=== PATIENT | male | born 1995 | race Caucasian/White ===

== ENCOUNTER 2017-07-21 22:27 | Inpatient (IN) ==
--- NOTE | 2017-07-21 22:59 | Emergency Department Note ---
Disposition Clinical Impression: Dehydration, Manic episode Bipolar disorder Qualifiers: Active/Remission status: remission status unspecified Qualified Code(s): F31.9 - Bipolar disorder, unspecified Alcohol withdrawal Qualifiers: Complication of substance-induced condition: uncomplicated Qualified Code(s): F10.230 - Alcohol dependence with withdrawal, uncomplicated Disposition: Admitted As Inpatient Condition: Fair Referrals: NONE,PCP [Primary Care Provider] - Forms: ED Satisfaction Letter Time of Disposition: 02:41 Psych HPI - General Chief Complaint: ED Psychiatric Symptoms Stated Complaint: SI Time Seen by Provider: 07/21/17 22:39 Source: patient Mode of arrival: ambulatory Limitations: no limitations Nursing Notes Reviewed: Yes Vital Signs Reviewed: Yes - History of Present Illness HPI Narrative: Nontoxic-appearing alert and oriented 22-year-old male presents for evaluation of "I think I meet her and acute dave or eye has some thyroid issues". The patient states for the past 2 weeks, he has been in a manic episode. He states that this is associated with an increased overall drive as well as racing thoughts. He complains of "my heart is racing all the time". He states that he has had "fevers" on and off that he describes as temperature fluctuations. He states that this along with his rapid heart rate lend him to believe that " my thyroid might be acting up", although he has no official diagnosis of thyroid disorder. He does not currently take any medications for his bipolar disorder. He states that in the past, he had been medicated however "it either did not work for made things worse". He does not see a psychiatrist, and states that he has not in the past 4 years. He admits to thoughts of self-harm in the past however denies any thoughts of inflicting self harm or harm to others currently. He denies any auditory or visual hallucinations. Pt complaint: anxiety, heart racing, other (racing thoughts) Onset (ago): week(s) (2 weeks) Duration: constant History of similar episodes: Yes Improves with: none Worsens with: none Associated Psychiatric Symptoms: racing thoughts Self harm or harm to others: denies thoughts of harming self/others - Related Data Home Medications Medication Instructions Recorded Confirmed Advil 12/16/16 Cough Syrup 12/16/16 Previous Rx's Medication Instructions Recorded Amoxicillin 875 mg PO BID #20 tablet 12/16/16 Allergies Allergy/AdvReac Type Severity Reaction Status Date / Time No Known Allergies Allergy Verified 07/21/17 22:39 All systems ED: reviewed and negative except as stated. Constitutional: Reports: as per HPI, other ("Temperature fluctuations"). Denies : fever, chills, weakness, weight change Eyes: Denies: eye pain, eye discharge, vision change ENT ED: Denies: ear pain, throat pain, dental pain, hearing loss, epistaxis, congestion, dysphagia Cardiovascular: Denies: chest pain, palpitations, dyspnea on exertion, edema, syncope Respiratory: Denies: cough, dyspnea, wheezes, hemoptysis, stridor Gastrointestinal: Denies: abdominal pain, nausea, vomiting, diarrhea, constipation, hematemesis, melena, hematochezia Genitourinary: Denies: urgency, dysuria, frequency, hematuria Musculoskeletal: Denies: back pain, neck pain, arthralgia, myalgia Integumentary: Denies: rash, abrasion, lesions Neurological: Denies: headache, weakness, numbness, paresthesias, confusion, abnormal gait, vertigo Psychiatric: Reports: as per HPI, other (Acing thoughts, "acute dave"). Denies : anxiety, depression, suicidal thoughts, homicidal thoughts, auditory hallucinations, visual hallucinations Endocrine: Denies: fatigue Hematological/Lymphatic: Denies: easy bleeding, easy bruising Allergic/Immunologic: Denies: facial swelling, urticaria Past Medical History - Past Medical History Attestation: Yes The following information was validated with the patient. Source: patient, nursing notes reviewed Medical history: Reports: no medical history Psychiatric history: Reports: bipolar - Social History Smoking Status: Current every day smoker Smokeless Tobacco Status: No Alcohol use: Reports: heavy, recent Drug use: Reports: none Physical Exam - General General appearance: alert, in no apparent distress - Head Head exam: atraumatic, normocephalic, normal inspection - Eye Eye exam: Present: normal appearance, PERRL, EOMI. Absent: nystagmus - ENT ENT exam: mucous membranes moist - Neck Neck exam: Present: normal inspection, full ROM, trachea midline - Chest Chest inspection: Present: normal inspection, symmetric chest wall rise - Respiratory Respiratory exam: Present: normal lung sounds bilaterally. Absent: respiratory distress, wheezes, stridor, accessory muscle use, prolonged expiratory phase - Cardiovascular Cardiovascular exam: Present: normal rhythm, tachycardia, normal heart sounds - Abdominal Exam Abdominal exam: Present: soft, Non-Tender, normal bowel sounds - Extremities Exam Extremities exam: Present: normal inspection, full ROM. Absent: tenderness, pedal edema - Neurological Exam Neurological exam: Present: alert, oriented X3 - Psychiatric Psychiatric exam: Present: normal affect, anxious - Skin Skin exam: Present: warm, dry, intact, normal color Course Course Narrative: I discussed this patient's case with Dr. Rosado, who agrees that the patient should be admitted to medicine for further evaluation and treatment of his alcohol withdrawal prior to any psychiatric consultation. The patient is in agreement with this plan. 0240: I discussed this patient's case with Dr. Ordoñez of the hospitalist service who has accepted the patient for admission. Vital Signs Temperature 98.2 F 07/21/17 22:33 Pulse Rate 138 07/21/17 22:33 Respiratory Rate 20 07/21/17 22:33 Blood Pressure 170/131 07/21/17 22:33 O2 Sat by Pulse Oximetry 96 07/21/17 22:33 Temperature 98.2 F 07/21/17 22:33 Pulse Rate 103 07/22/17 02:34 Respiratory Rate 16 07/22/17 02:34 Blood Pressure 134/90 07/22/17 02:34 O2 Sat by Pulse Oximetry 98 07/22/17 02:34 Oxygen Delivery Oxygen Delivery Room Air Psych - Lab Data Result diagrams: 07/21/17 23:27 07/21/17 23:27 Lab Results 07/21/17 07/21/17 07/21/17 Range/Units 23:06 23:06 23:27 WBC 5.1 (4.3-11.1) K/mcL RBC 5.47 (4.19-5.50) M/mcL Hgb 17.3 H (12.9-16.9) g/dL Hct 49.4 (37.5-50.1) % MCV 90.3 (83.0-100.0) fL MCH 31.6 (28.0-33.3) pg MCHC 35.0 (31.6-35.5) g/dL RDW 12.5 (11.5-14.5) % Plt Count 211 (140-400) K/mcL MPV 9.1 L (9.4-12.4) fL Immature Gran % 0.4 (0-4) % Seg Neutrophils % 50.3 % Lymphocytes % 39.4 % Monocytes % 7.5 % Eosinophils % 1.8 % Basophils % 0.6 % Neutrophils # 2.6 (1.6-8.9) K/mcL Lymphocytes # 2.0 (0.6-4.6) K/mcL Monocytes # 0.4 (0.0-1.3) K/mcL Eosinophils # 0.1 (0.0-0.6) K/mcL Basophils # 0.0 (0.0-0.2) K/mcL Immature Plt Fraction 3.6 (1.1-6.1) % Sodium (136-145) mEq/L Potassium (3.5-4.5) mEq/L Chloride (98-109) mEq/L Carbon Dioxide (19-29) mEq/L BUN (8-26) mg/dL Creatinine (0.72-1.25) mg/dL Est GFR ( Amer) (> 60) Est GFR (Non-Af Amer) (> 60) BUN/Creatinine Ratio (6-26) Glucose (70-99) mg/dL Calculated Osmolality (280-300) Calcium (8.6-10.8) mg/dL Phosphorus (2.3-4.7) mg/dL Magnesium (1.6-2.6) mg/dL Total Bilirubin (0.2-1.2) mg/dL Direct Bilirubin (0.0-0.5) mg/dL Indirect Bilirubin (0.0-1.2) mg/dL AST (5-34) Units/L ALT (0-55) Units/L Alkaline Phosphatase (38-126) Units/L Troponin I (0-0.03) ng/mL Serum Total Protein (6.0-8.3) g/dL Albumin (3.5-5.0) g/dL Globulin (2.4-3.5) g/dL Albumin/Globulin Ratio (1.1-2.2) TSH (0.350-4.840) mcIU/mL Urine Color Yellow (Yellow) Urine Clarity Clear (Clear) Urine pH 6.0 (5.0-8.0) pH Units Ur Specific [place] 1.013 (1.010-1.025) Urine Protein 100 H (Neg-Trace) mg/dL Urine Glucose (UA) Normal (Normal) mg/dL Urine Ketones Trace H (Negative) mg/dL Urine Blood Trace H (Negative) Urine Nitrite Negative (Negative) Urine Bilirubin Negative (Negative) Urine Urobilinogen Normal (Normal) mg/dL Ur Leukocyte Esterase Negative (Negative) Urine Microscopic RBC 0-3 (0-3) per hpf Urine Microscopic WBC 0-3 (0-3) per hpf Ur Squamous Epith Cells Moderate H (None-Few) per lpf Urine Bacteria None Seen (None-Few) per hpf Salicylates (15-30) mg/dL Urine Opiates Screen Negative (Xdpjwe=798) ng/mL Acetaminophen (10-30) mcg/mL Ur Barbiturates Screen Negative (Cfzlpo=717) ng/mL Ur Phencyclidine Scrn Negative (Cutoff=25) ng/mL Ur Amphetamines Screen Negative (Ocmjbc=3682) ng/mL U Benzodiazepines Scrn Negative (Tamjmm=874) ng/mL Urine Cocaine Screen Negative (Cutoff= 300) ng/mL U Marijuana (THC) Screen Negative (Cutoff = 50) ng/mL Ethyl Alcohol (0-10) mg/dL 07/21/17 07/21/17 07/21/17 Range/Units 23:27 23:27 23:27 WBC (4.3-11.1) K/mcL RBC (4.19-5.50) M/mcL Hgb (12.9-16.9) g/dL Hct (37.5-50.1) % MCV (83.0-100.0) fL MCH (28.0-33.3) pg MCHC (31.6-35.5) g/dL RDW (11.5-14.5) % Plt Count (140-400) K/mcL MPV (9.4-12.4) fL Immature Gran % (0-4) % Seg Neutrophils % % Lymphocytes % % Monocytes % % Eosinophils % % Basophils % % Neutrophils # (1.6-8.9) K/mcL Lymphocytes # (0.6-4.6) K/mcL Monocytes # (0.0-1.3) K/mcL Eosinophils # (0.0-0.6) K/mcL Basophils # (0.0-0.2) K/mcL Immature Plt Fraction (1.1-6.1) % Sodium 140 (136-145) mEq/L Potassium 3.7 (3.5-4.5) mEq/L Chloride 102 (98-109) mEq/L Carbon Dioxide 21 (19-29) mEq/L BUN 7 L (8-26) mg/dL Creatinine 1.03 (0.72-1.25) mg/dL Est GFR ( Amer) > 60 (> 60) Est GFR (Non-Af Amer) > 60 (> 60) BUN/Creatinine Ratio 7 (6-26) Glucose 115 H (70-99) mg/dL Calculated Osmolality 289 (280-300) Calcium 9.4 (8.6-10.8) mg/dL Phosphorus 2.9 (2.3-4.7) mg/dL Magnesium 2.7 H (1.6-2.6) mg/dL Total Bilirubin 0.8 (0.2-1.2) mg/dL Direct Bilirubin 0.4 (0.0-0.5) mg/dL Indirect Bilirubin 0.4 (0.0-1.2) mg/dL AST 106 H (5-34) Units/L ALT 78 H (0-55) Units/L Alkaline Phosphatase 75 (38-126) Units/L Troponin I 0.01 (0-0.03) ng/mL Serum Total Protein 8.7 H (6.0-8.3) g/dL Albumin 4.6 (3.5-5.0) g/dL Globulin 4.1 H (2.4-3.5) g/dL Albumin/Globulin Ratio 1.1 (1.1-2.2) TSH 1.777 (0.350-4.840) mcIU/mL Urine Color (Yellow) Urine Clarity (Clear) Urine pH (5.0-8.0) pH Units Ur Specific [place] (1.010-1.025) Urine Protein (Neg-Trace) mg/dL Urine Glucose (UA) (Normal) mg/dL Urine Ketones (Negative) mg/dL Urine Blood (Negative) Urine Nitrite (Negative) Urine Bilirubin (Negative) Urine Urobilinogen (Normal) mg/dL Ur Leukocyte Esterase (Negative) Urine Microscopic RBC (0-3) per hpf Urine Microscopic WBC (0-3) per hpf Ur Squamous Epith Cells (None-Few) per lpf Urine Bacteria (None-Few) per hpf Salicylates < 5.0 L (15-30) mg/dL Urine Opiates Screen (Ednghy=001) ng/mL Acetaminophen < 1.0 L (10-30) mcg/mL Ur Barbiturates Screen (Hfxxln=572) ng/mL Ur Phencyclidine Scrn (Cutoff=25) ng/mL Ur Amphetamines Screen (Hnuaqr=3696) ng/mL U Benzodiazepines Scrn (Grnvnx=559) ng/mL Urine Cocaine Screen (Cutoff= 300) ng/mL U Marijuana (THC) Screen (Cutoff = 50) ng/mL Ethyl Alcohol 313 H (0-10) mg/dL Psychiatric Medical Clearance - Medical Clearance Checklist Medical History: Alcohol abuse (Inactive) Depression (Inactive) Sinusitis (Inactive) Upper respiratory infection (Inactive) No Social History Section defined Current Vitals: Last Vital Signs Temp 98.2 F 07/21/17 22:33 Pulse 103 07/22/17 02:34 Resp 16 07/22/17 02:34 BP 134/90 07/22/17 02:34 Pulse Ox 98 07/22/17 02:34 Psychiatric Lab Panel: Drug Levels and Toxicity 07/21/17 07/21/17 23:06 23:27 Urine Opiates Screen Negative Acetaminophen < 1.0 L Ur Barbiturates Screen Negative Ur Phencyclidine Scrn Negative Ur Amphetamines Screen Negative U Benzodiazepines Scrn Negative Urine Cocaine Screen Negative U Marijuana (THC) Screen Negative Ethyl Alcohol 313 H Abnormal Labs: Abnormal lab results Hgb 17.3 g/dL (12.9-16.9) H 07/21/17 23:27 MPV 9.1 fL (9.4-12.4) L 07/21/17 23:27 BUN 7 mg/dL (8-26) L 07/21/17 23:27 Glucose 115 mg/dL (70-99) H 07/21/17 23:27 Magnesium 2.7 mg/dL (1.6-2.6) H 07/21/17 23:27 AST 106 Units/L (5-34) H 07/21/17 23:27 ALT 78 Units/L (0-55) H 07/21/17 23:27 Serum Total Protein 8.7 g/dL (6.0-8.3) H 07/21/17 23:27 Globulin 4.1 g/dL (2.4-3.5) H 07/21/17 23:27 Urine Protein 100 mg/dL (Neg-Trace) H 07/21/17 23:06 Urine Ketones Trace mg/dL (Negative) H 07/21/17 23:06 Urine Blood Trace (Negative) H 07/21/17 23:06 Ur Squamous Epith Cells Moderate per lpf (None-Few) H 07/21/17 23:06 Salicylates < 5.0 mg/dL (15-30) L 07/21/17 23:27 Acetaminophen < 1.0 mcg/mL (10-30) L 07/21/17 23:27 Ethyl Alcohol 313 mg/dL (0-10) H 07/21/17 23:27 Statement of Medical Clearance: I have evaluated the patient, reviewed diagnostic information, and certify that the patient's medical condition is sufficiently stable that transfer to the psychiatric unit does not pose a significant risk of deterioration. Attestation Statement - Attestation Attestation: For this encounter, I have reviewed the GRANULIZING MACHINE OPERATOR or PA documentation, treatment plan, and medical decision making; and I have had face to face time with this patient. 22 year old male who is a chronic alcoholic and here today for SI. Patient has a ETOH of 313 and likely will have alcohol detox issues if he is needed to have a ETOH <80. WE will start banana bag and mVI and admti to medicine for alcoholic intoxcation/withdrawl and pysch medical clearance
[2017-07-21 23:15] LABS: Bilirubin,Urine Negative (Negative); Blood,Urine Trace (Negative); Clarity,Urine Clear (Clear); Color,Urine Yellow (Yellow); Glucose,Urine (UA) Normal (Normal); Ketones,Urine Trace mg/dL (Negative); Leukocyte Esterase,Urine Negative (Negative); Nitrite,Urine Negative (Negative); Protein,Urine 100 mg/dL (Neg-Trace); Specific Gravity,Urine 1.013 (1.010-1.025); Urobilinogen,Urine Normal (Normal)
[2017-07-21 23:17] LABS: Amphetamine Screen,Urine Negative ng/mL (Cutoff=1000); Barbiturate Screen,Urine Negative ng/mL (Cutoff=200); Benzodiazepines Screen,Urine Negative ng/mL (Cutoff=200); Cannabinoid Screen,Urine Negative ng/mL (Cutoff = 50); Cocaine Screen,Urine Negative ng/mL (Cutoff= 300); Opiate Screen,Urine Negative ng/mL (Cutoff=300); Phencyclidine Screen,Urine Negative ng/mL (Cutoff=25)
[2017-07-21 23:18] LABS: Bacteria,Urine None Seen per hpf (None-Few); RBC,Urine 0-3 per hpf (0-3); Squamous Epithelial Cell,Urine Moderate per lpf (None-Few); WBC,Urine 0-3 per hpf (0-3)
[2017-07-21 23:34] LABS: Basophils % 0.6 %; Eosinophils # 0.1 K/mcL (0.0-0.6); Eosinophils % 1.8 %; Hematocrit 49.4 % (37.5-50.1); Hemoglobin 17.3 g/dL (12.9-16.9); Immature Granulocytes % 0.4 % (0-4); Immature Platelets 3.6 % (1.1-6.1); Lymphocytes % 39.4 %; Mean Corpuscular Hemoglobin 31.6 pg (28.0-33.3); Mean Corpuscular Volume 90.3 fL (83.0-100.0); Mean Platelet Volume 9.1 fL (9.4-12.4); Monocytes # 0.4 K/mcL (0.0-1.3); Monocytes % 7.5 %; Neutrophils # 2.6 K/mcL (1.6-8.9); Platelet Count 211 K/mcL (140-400); Red Blood Count 5.47 M/mcL (4.19-5.50); Red Cell Distribution Width 12.5 % (11.5-14.5); Segmented Neutrophils % 50.3 %
[2017-07-21 23:46] LABS: BUN/Creatinine Ratio 7 (6-26); Blood Urea Nitrogen 7 mg/dL (8-26); Calcium 9.4 mg/dL (8.6-10.8); Carbon Dioxide 21 mEq/L (19-29); Chloride 102 mEq/L (98-109); Glucose 115 mg/dL (70-99); Osmolality,Calculated 289 (280-300); Potassium 3.7 mEq/L (3.5-4.5); Sodium 140 mEq/L (136-145); eGFR For African Americans > 60 (> 60); eGFR For Non-African Americans > 60 (> 60)
[2017-07-21 23:48] LABS: Albumin 4.6 g/dL (3.5-5.0); Albumin/Globulin Ratio 1.1 (1.1-2.2); Bilirubin,Direct 0.4 mg/dL (0.0-0.5); Bilirubin,Indirect 0.4 mg/dL (0.0-1.2); Bilirubin,Total 0.8 mg/dL (0.2-1.2); Globulin 4.1 g/dL (2.4-3.5); Magnesium 2.7 mg/dL (1.6-2.6); Phosphorous 2.9 mg/dL (2.3-4.7); Total Protein 8.7 g/dL (6.0-8.3)
[2017-07-22 00:43] LABS: Acetaminophen < 1.0 mcg/mL (10-30)
[2017-07-22 00:44] LABS: Ethanol 313 mg/dL (0-10); Salicylate < 5.0 mg/dL (15-30)
[2017-07-22 01:00] LABS: Thyroid Stimulating Hormone 1.777 mcIU/mL (0.350-4.840)
[2017-07-22] MEDS ORDERED: *HR* LORazepam 2 MG/ML VIAL IVP ONE (01:06)
[2017-07-22] MEDS: 0.9 % Sodium Chloride 1,000 ML IVC SCH ×8 (01:55→19:38)
[2017-07-22] MEDS ORDERED: Ondansetron 4 MG/2 ML VIAL IVP PRN (03:45)
[2017-07-22] MEDS ORDERED: Naloxone 0.4 MG/ML INJ IVP PRN (03:45)
[2017-07-22] MEDS ORDERED: *HR* LORazepam 2 MG/ML VIAL IVP PRN ×3 (03:46)
[2017-07-22 05:03] LABS: Basophils % 0.4 %; Eosinophils % 0.7 %; Hematocrit 41.7 % (37.5-50.1); Immature Granulocytes % 0.2 % (0-4); Lymphocytes # 1.4 K/mcL (0.6-4.6); Lymphocytes % 29.7 %; Mean Corpuscular Hemoglobin 32.4 pg (28.0-33.3); Mean Corpuscular Volume 92.5 fL (83.0-100.0); Mean Platelet Volume 9.2 fL (9.4-12.4); Monocytes # 0.3 K/mcL (0.0-1.3); Monocytes % 6.7 %; Neutrophils # 2.9 K/mcL (1.6-8.9); Platelet Count 138 K/mcL (140-400); Red Blood Count 4.51 M/mcL (4.19-5.50); Red Cell Distribution Width 12.6 % (11.5-14.5); Segmented Neutrophils % 62.3 %
[2017-07-22 05:05] LABS: Hemoglobin 14.6 g/dL (12.9-16.9)
[2017-07-22 05:27] LABS: BUN/Creatinine Ratio 9 (6-26); Blood Urea Nitrogen 7 mg/dL (8-26); Carbon Dioxide 20 mEq/L (19-29); Chloride 105 mEq/L (98-109); Glucose 86 mg/dL (70-99); Magnesium 2.1 mg/dL (1.6-2.6); Osmolality,Calculated 287 (280-300); Phosphorous 2.8 mg/dL (2.3-4.7); Potassium 3.5 mEq/L (3.5-4.5); Sodium 140 mEq/L (136-145); eGFR For African Americans > 60 (> 60); eGFR For Non-African Americans > 60 (> 60)
[2017-07-22] MEDS ORDERED: Thiamine (B-1) 100 MG, Folic Acid 1 MG, MVI, adult with vitamin K 10 ML in 0.9 % Sodi... IVPB SCH ×2 (06:00→18:00)
--- NOTE | 2017-07-22 06:13 | Internal Med History&Physical ---
Date of Encounter: 07/22/17 Time of Encounter: 05:10 Assessment and Plan (1) Alcohol intoxication Current visit: Yes Status: Acute As per ER physician, patient can not be transferred to psych for ETOH levels above 80 will closely monitor for alcohol withdrawal Supplement Banana bag with MVI, Folate, and Thiamine CIWA protocol Ativan as needed tele monitoring will continue to closely monitor Qualifiers: Complication of substance-induced condition: with unspecified complication Qualified Code(s): F10.929 - Alcohol use, unspecified with intoxication, unspecified (2) Suicidal ideation Current visit: Yes Status: Acute Patient reports of hearing voices without any clear messages He reports of having suicidal thoughts without any clear plan Will continue 1:1 observation psychiatry evaluation requested by ER Physician (3) Bipolar disorder Current visit: Yes Status: Acute Reported history by patient Currently calm will await psych follow up patient reports of not taking any medications at home Qualifiers: Active/Remission status: currently active Current bipolar episode type: mixed Current episode severity: unspecified Qualified Code(s): F31.60 - Bipolar disorder, current episode mixed, unspecified (4) DVT prophylaxis Current visit: Yes Status: Acute Heparin SQ Internal Medicine - H&P: HPI Chief complaint: suicidal ideation/bipolar disorder Admitted From: Home Plans for Post Hospital Care: Home History of present illness: Mr. Elena is a 22 year old male with history of bipolar disorder, alcohol abuse , suicide attempts who presents to the ER for management of his acute manic episode secondary to his bipolar disorder. Patient states he has been hearing voices for the last few weeks and has been using alcohol to calm himself down. He says he has not seen a psychiatrist in over three years and needs to see one. He reports of having past suicide attempt and current has thoughts of hurting himself with no clear plan. He states he couldn't handle the voices anymore which prompted his visit to the ER. Upon arrival to the ER, he was intoxicated due to which he could not be admitted to psych inpatient. He was asked for medicine clearance for transfer to psych. Psych consultation has been requested by the ER physician. At this time, patient is resting comfortably in bed. He states he needs to get help and wants to get help. He states he had quit drinking until this recent episode. Reports of smoking marijuana two weeks ago, however denies any other drug abuse. He denies any chest pain, sob, abd pain, n/v, fever, or chills. Past Med Surg Social Fam HX - Past Medical History Medical history: no medical history Psychiatric history: anxiety, bipolar, depression, prior suicide attempt - Past Surgical History Surgical History: no surgical history - Social History Smoking Status: Current every day smoker Smokeless Tobacco Status: No Alcohol use: heavy, recent Drug use: marijuana - Family History Mother Name: Amee Blount Age: 67 Living Status: Still Living Hx Family Cardiac Disorders: No Hx Family Respiratory Disorders: Yes (Smoker) Hx Family Cancer: No Hx Family GI Disorders: Yes (Positive colonoscopy) Hx Family Genitourinary Disorders: No Hx Family Endocrine Disorder: Yes (gestational diabetes) Hx Family Musculoskeletal Disorders: Yes (Spinal surgery, Degenerative disk diease) Hx Family Neuromuscular Disorders: No Hx Family Neurologic Disorders: No Hx Family HEENT Disorders: No Hx Family Autoimmune Disorders: No Hx Family Reproductive Disorders: No Hx Family Psychosocial Disorders: Yes ("explosive temper") Hx Family Medical Disorders: No Internal Medicine - H&P: Meds Advil 12/16/16 [History] Amoxicillin 875 mg PO BID #20 tablet 12/16/16 [Rx] Cough Syrup 12/16/16 [History] 3 Allergy/AdvReac Type Severity Reaction Status Date / Time No Known Allergies Allergy Verified 07/21/17 22:39 All Systems PM: A 10-system review of systems was performed and is negative for pertinent findings except as documented above in the HPI. - Constitutional Constitutional: as per HPI - Constitutional Vitals: Temp Pulse Resp BP Pulse Ox 98.1 F 103 18 134/88 98 07/22/17 03:33 07/22/17 02:34 07/22/17 03:33 07/22/17 03:33 07/22/17 02:34 General appearance: Present: cooperative, A&O X 3, no acute distress, answers questions appropriately - Head Head exam: Present: atraumatic, normocephalic - Eye Eye exam: Present: conjuntiva pink, sclera anicteric - Respiratory Respiratory exam: Present: CTAB. Absent: accessory muscle use, rales, rhonchi, wheezes - Cardiovascular Cardiovascular exam: Present: RRR, +S1, +S2. Absent: diastolic murmur, gallop, rubs, systolic murmur - GI/Abdominal GI/Abdominal exam: Present: normal bowel sounds, soft, no peritoneal signs. Absent: distended, tenderness - Extremities Exam Extremities exam: Present: warm, radial pulses palpable and symmetrical. Absent : calf tenderness, cyanotic, pedal edema - Neurological Exam Neurological exam: Present: alert, oriented X3 - Psychiatric Psychiatric exam: Present: depressed Internal Med - H&P Results - Labs CBC & Chem 7: 07/22/17 04:38 07/22/17 04:38 Labs: Short CBC 07/22/17 Range/Units 04:38 WBC 4.6 (4.3-11.1) K/mcL Hgb 14.6 D (12.9-16.9) g/dL Hct 41.7 (37.5-50.1) % Plt Count 138 L (140-400) K/mcL Neutrophils # 2.9 (1.6-8.9) K/mcL BMP 07/22/17 04:38 Sodium 140 Potassium 3.5 Chloride 105 Carbon Dioxide 20 BUN 7 L Creatinine 0.82 Glucose 86 Calcium 8.0 L
[2017-07-22] MEDS: *HR* Heparin 5,000 UNIT/ML VIAL SQ SCH ×2 (07:49→18:39)
--- NOTE | 2017-07-22 12:17 | Electrocardiograph Report ---
[place] [id number] Test Date: 2017-07-21 Pat Name: Devyn Elena Department: 103 Room: 3B Gender: M Nurse Tech: JOYCE : [id number] Requested By: Sami Gottlieb Order Number: [id number] Reading MD: Sydni Aldana Measurements Intervals [place] Rate: 118 P: 38 FL: 158 QRS: -34 QRSD: 97 T: 20 QT: 305 QTc: 375 Interpretive Statements SINUS TACHYCARDIA LEFT AXIS DEVIATION INCOMPLETE RIGHT BUNDLE BRANCH BLOCK Electronically Signed On 07-22-2017 12:16:17 EDT by Sydni Aldana
--- NOTE | 2017-07-22 15:42 | Consult Note ---
Date of Encounter: 07/22/17 Time of Encounter: 15:10 Assessment & Recommendation (1) Bipolar disorder Current visit: Yes Status: Acute Assessment & Recommendation: After medical stabilization patient would be transferred to psychiatric unit for further evaluation and treatment of bipolar disorder. Treatment plan was shared was attending physician and nursing staff. Qualifiers: Active/Remission status: currently active Current bipolar episode type: mixed Current episode severity: unspecified Qualified Code(s): F31.60 - Bipolar disorder, current episode mixed, unspecified (2) Alcohol intoxication Current visit: Yes Status: Acute Qualifiers: Complication of substance-induced condition: with unspecified complication Qualified Code(s): F10.929 - Alcohol use, unspecified with intoxication, unspecified History of Present Illness Patient: new to practice Requesting Physician: Bertha Rasmussen MD Reason for consult: Bipolar disorder, manic episode, intoxication History of present illness: Mr. Elena is a 22 year old male admitted to the medical floor for evaluation treatment of alcohol intoxication was alcohol level of 313, suicidal ideation and manic episodes and history of bipolar disorder. Patient reports he has been diagnosed and treated for bipolar disorder was medication in the past and has been without treatment for the last 4 years. He was treated in the past with lithium and Abilify and he reported having side effects from both medication in addition she drinks alcohol excessively when he is manic and he is unable to sleep and prior to admission he was drinking excessive amount of alcohol and unable to control himself. His girlfriend encouraged him to come the hospital for evaluation. Patient is currently on CIWA scale and monitored for sore symptoms and being medically stabilized. He reports using marijuana and alcohol caffeine and nicotine excessive amounts. 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 CC: Bertha Rasmussen MD Past Med Surg Social Fam HX - Past Medical History Medical history: no medical history - Past Psychiatric History Psychiatric history: Reports: bipolar. Denies: previous psychiatric hospitalization - Past Surgical History Surgical History: no surgical history - Social History Smoking Status: Current every day smoker Smokeless Tobacco Status: No Alcohol use: heavy, recent Drug use: marijuana - Family History Mother Name: Amee Blount Age: 67 Living Status: Still Living Hx Family Cardiac Disorders: No Hx Family Respiratory Disorders: Yes (Smoker) Hx Family Cancer: No Hx Family GI Disorders: Yes (Positive colonoscopy) Hx Family Genitourinary Disorders: No Hx Family Endocrine Disorder: Yes (gestational diabetes) Hx Family Musculoskeletal Disorders: Yes (Spinal surgery, Degenerative disk diease) Hx Family Neuromuscular Disorders: No Hx Family Neurologic Disorders: No Hx Family HEENT Disorders: No Hx Family Autoimmune Disorders: No Hx Family Reproductive Disorders: No Hx Family Psychosocial Disorders: Yes ("explosive temper") Hx Family Medical Disorders: No Medications & Allergies No Known Home Drugs 07/22/17 [History] 3 Allergy/AdvReac Type Severity Reaction Status Date / Time No Known Allergies Allergy Verified 07/22/17 14:24 Review of Systems Psychiatric: Reports: abnormal sleep pattern, suicidal ideation Mental Status Exam Patient orientation: Yes Person, Yes Time, Yes Place Level of alertness: Alert, Sedated Patient appearance: Appropriate, Unkempt Behavior: calm, cooperative, anxious Psychomotor activity: Slowed Eye contact: Minimal Contact Mood description: Anxious, Labile Affect description: congruent with mood, labile Speech pattern: Normal rate, Normal rhythm, Normal tone Speech volume: Normal Thought process: Linear, Goal Oriented Thought content: Yes Suicidal ideation, No Homicidal ideation, No Overt delusions Perceptual disturbances: Yes Auditory hallucinations, Yes Visual hallucinations Attention span: Capable of Focused Attention Memory description: Grossly Intact Patient reliability: Questionable Historian Intelligence estimate: Average Judgment: Limited Insight: Partial Results - Vital Signs Vital signs: Temp Pulse Resp BP Pulse Ox 97.7 F 90 18 131/89 97 07/22/17 10:57 07/22/17 10:57 07/22/17 10:57 07/22/17 10:57 07/22/17 10:57 - Labs Labs: Laboratory Last Values WBC 4.6 K/mcL (4.3-11.1) 07/22/17 04:38 RBC 4.51 M/mcL (4.19-5.50) 07/22/17 04:38 Hgb 14.6 g/dL (12.9-16.9) D 07/22/17 04:38 Hct 41.7 % (37.5-50.1) 07/22/17 04:38 MCV 92.5 fL (83.0-100.0) 07/22/17 04:38 MCH 32.4 pg (28.0-33.3) 07/22/17 04:38 MCHC 35.0 g/dL (31.6-35.5) 07/22/17 04:38 RDW 12.6 % (11.5-14.5) 07/22/17 04:38 Plt Count 138 K/mcL (140-400) L 07/22/17 04:38 MPV 9.2 fL (9.4-12.4) L 07/22/17 04:38 Immature Gran % 0.2 % (0-4) 07/22/17 04:38 Seg Neutrophils % 62.3 % 07/22/17 04:38 Lymphocytes % 29.7 % 07/22/17 04:38 Monocytes % 6.7 % 07/22/17 04:38 Eosinophils % 0.7 % 07/22/17 04:38 Basophils % 0.4 % 07/22/17 04:38 Neutrophils # 2.9 K/mcL (1.6-8.9) 07/22/17 04:38 Lymphocytes # 1.4 K/mcL (0.6-4.6) 07/22/17 04:38 Monocytes # 0.3 K/mcL (0.0-1.3) 07/22/17 04:38 Eosinophils # 0.0 K/mcL (0.0-0.6) 07/22/17 04:38 Basophils # 0.0 K/mcL (0.0-0.2) 07/22/17 04:38 Immature Plt Fraction 3.6 % (1.1-6.1) 07/21/17 23:27 Sodium 140 mEq/L (136-145) 07/22/17 04:38 Potassium 3.5 mEq/L (3.5-4.5) 07/22/17 04:38 Chloride 105 mEq/L (98-109) 07/22/17 04:38 Carbon Dioxide 20 mEq/L (19-29) 07/22/17 04:38 BUN 7 mg/dL (8-26) L 07/22/17 04:38 Creatinine 0.82 mg/dL (0.72-1.25) 07/22/17 04:38 Est GFR ( Amer) > 60 (> 60) 07/22/17 04:38 Est GFR (Non-Af Amer) > 60 (> 60) 07/22/17 04:38 BUN/Creatinine Ratio 9 (6-26) 07/22/17 04:38 Glucose 86 mg/dL (70-99) 07/22/17 04:38 Calculated Osmolality 287 (280-300) 07/22/17 04:38 Calcium 8.0 mg/dL (8.6-10.8) L 07/22/17 04:38 Phosphorus 2.8 mg/dL (2.3-4.7) 07/22/17 04:38 Magnesium 2.1 mg/dL (1.6-2.6) 07/22/17 04:38 Total Bilirubin 0.8 mg/dL (0.2-1.2) 07/21/17 23: Direct Bilirubin 0.4 mg/dL (0.0-0.5) 07/21/17 23: Indirect Bilirubin 0.4 mg/dL (0.0-1.2) 07/21/17 23:27 AST 106 Units/L (5-34) H 07/21/17 23:27 ALT 78 Units/L (0-55) H 07/21/17 23:27 Alkaline Phosphatase 75 Units/L (38-126) 07/21/17 23:27 Troponin I 0.01 ng/mL (0-0.03) 07/21/17 23:27 Serum Total Protein 8.7 g/dL (6.0-8.3) H 07/21/17 23: Albumin 4.6 g/dL (3.5-5.0) 07/21/17 23: Globulin 4.1 g/dL (2.4-3.5) H 07/21/17 23:27 Albumin/Globulin Ratio 1.1 (1.1-2.2) 07/21/17 23:27 TSH 1.777 mcIU/mL (0.350-4.840) 07/21/17 23:27 Urine Color Yellow (Yellow) 07/21/17 23:06 Urine Clarity Clear (Clear) 07/21/17 23: Urine pH 6.0 pH Units (5.0-8.0) 07/21/17 23: Ur Specific [place] 1.013 (1.010-1.025) 07/21/17 23:06 Urine Protein 100 mg/dL (Neg-Trace) H 07/21/17 23:06 Urine Glucose (UA) Normal mg/dL (Normal) 07/21/17 23:06 Urine Ketones Trace mg/dL (Negative) H 07/21/17 23:06 Urine Blood Trace (Negative) H 07/21/17 23:06 Urine Nitrite Negative (Negative) 07/21/17 23:06 Urine Bilirubin Negative (Negative) 07/21/17 23:06 Urine Urobilinogen Normal mg/dL (Normal) 07/21/17 23:06 Ur Leukocyte Esterase Negative (Negative) 07/21/17 23:06 Urine Microscopic RBC 0-3 per hpf (0-3) 07/21/17 23:06 Urine Microscopic WBC 0-3 per hpf (0-3) 07/21/17 23:06 Ur Squamous Epith Cells Moderate per lpf (None-Few) H 07/21/17 23:06 Urine Bacteria None Seen per hpf (None-Few) 07/21/17 23:06 Salicylates < 5.0 mg/dL (15-30) L 07/21/17 23:27 Urine Opiates Screen Negative ng/mL (Ydkpmt=571) 07/21/17 23:06 Acetaminophen < 1.0 mcg/mL (10-30) L 07/21/17 23:27 Ur Barbiturates Screen Negative ng/mL (Kdppop=279) 07/21/17 23:06 Ur Phencyclidine Scrn Negative ng/mL (Cutoff=25) 07/21/17 23:06 Ur Amphetamines Screen Negative ng/mL (Fkdfyr=5959) 07/21/17 23:06 U Benzodiazepines Scrn Negative ng/mL (Iyeetn=942) 07/21/17 23:06 Urine Cocaine Screen Negative ng/mL (Cutoff= 300) 07/21/17 23:06 U Marijuana (THC) Screen Negative ng/mL (Cutoff = 50) 07/21/17 23:06 Ethyl Alcohol 313 mg/dL (0-10) H 07/21/17 23:27 Consult Discharge Plan - Plan Referrals: NONE,PCP [Primary Care Provider] -
[2017-07-22] MEDS ORDERED: Ibuprofen 600 MG TABLET PO ONE (21:09)
--- NOTE | 2017-07-22 23:11 | Event Note ---
Date of Encounter: 07/22/17 Time of Encounter: 14:15 22 year old male with h/o- bipolar disorder, presents with c/o- ongoing manic phase with poor sleep and appetite, now feeling "out of battery" and exhausted. Patient noted to have some alcohol intoxication at admission with serum alcohol level of 313. Physical exam nonfocal, VSS. Case d/w Psychiatry- recommend to recheck alcohol level, and continue CIWA; plan to transfer to psych floor when stable; currently not requiring IV Ativan. Patient denies ever having suicidal ideation since presenting to ER yesterday; will discontinue 1:1 watch for now.
[2017-07-23] MEDS: 0.9 % Sodium Chloride 1,000 ML IVC SCH ×4 (00:10→21:20)
[2017-07-23 06:14] LABS: Basophils % 0.3 %; Eosinophils # 0.1 K/mcL (0.0-0.6); Eosinophils % 1.5 %; Hematocrit 46.2 % (37.5-50.1); Immature Granulocytes % 0.3 % (0-4); Lymphocytes # 1.6 K/mcL (0.6-4.6); Lymphocytes % 26.3 %; Mean Corpuscular HGB Conc 35.3 g/dL (31.6-35.5); Mean Corpuscular Hemoglobin 32.5 pg (28.0-33.3); Mean Corpuscular Volume 92.2 fL (83.0-100.0); Mean Platelet Volume 9.7 fL (9.4-12.4); Monocytes # 0.5 K/mcL (0.0-1.3); Monocytes % 8.7 %; Neutrophils # 3.7 K/mcL (1.6-8.9); Platelet Count 125 K/mcL (140-400); Red Blood Count 5.01 M/mcL (4.19-5.50); Red Cell Distribution Width 12.4 % (11.5-14.5); Segmented Neutrophils % 62.9 %
[2017-07-23 06:17] LABS: BUN/Creatinine Ratio 13 (6-26); Blood Urea Nitrogen 10 mg/dL (8-26); Carbon Dioxide 21 mEq/L (19-29); Chloride 103 mEq/L (98-109); Glucose 71 mg/dL (70-99); Hemoglobin 16.3 g/dL (12.9-16.9); Magnesium 2.5 mg/dL (1.6-2.6); Osmolality,Calculated 284 (280-300); Phosphorous 2.9 mg/dL (2.3-4.7); Potassium 3.6 mEq/L (3.5-4.5); Sodium 138 mEq/L (136-145); eGFR For African Americans > 60 (> 60); eGFR For Non-African Americans > 60 (> 60)
[2017-07-23] MEDS: *HR* Heparin 5,000 UNIT/ML VIAL SQ SCH ×2 (06:17→17:58)
[2017-07-23 06:18] LABS: Calcium 9.5 mg/dL (8.6-10.8)
[2017-07-23] MEDS: Vitamin B Complex/Vit C/Vit E 1 EACH TABLET PO SCH (08:25)
[2017-07-23] MEDS: Folic Acid 1 MG TABLET PO SCH (08:25)
[2017-07-23] MEDS: Thiamine (B-1) 100 MG TABLET PO SCH (08:25)
--- NOTE | 2017-07-23 14:38 | Discharge Summary ---
Date of Encounter: 07/23/17 Time of Encounter: 13:35 - Discharge Diagnosis (1) Alcohol intoxication Priority: Primary Status: Acute Comments: ETOH level is back to normal, pt is ready for transfer to . Qualifiers: Complication of substance-induced condition: with unspecified complication Qualified Code(s): F10.929 - Alcohol use, unspecified with intoxication, unspecified (2) Suicidal ideation Priority: Secondary Status: Acute Comments: Pt states that he has never been suicidal. He states that at some point since arriving in the ED, someone added it, despite him saying that he is not suicidal. States that he has been suicidal in the past, however, has not been for the last month. Pt has not had a sitter today and is ready for transfer to . (3) Bipolar disorder Priority: Secondary Status: Chronic Comments: Chronic. Pt states that he does not take medication. Qualifiers: Active/Remission status: currently active Current bipolar episode type: mixed Current episode severity: unspecified Qualified Code(s): F31.60 - Bipolar disorder, current episode mixed, unspecified (4) DVT prophylaxis Priority: Secondary Status: Acute Comments: Heparin SQ. - Discharge Medications Home Medications: Folic Acid 1 mg PO DAILY tablet 07/23/17 [Rx] Thiamine (B-1) [Vitamin B-1] 100 mg PO DAILY tablet 07/23/17 [Rx] Vitamin B Complex/Vit C/Vit E [Stresstab] 1 each PO DAILY tablet 07/23/17 [Rx] Allergies/Adverse Reactions: 3 Allergy/AdvReac Type Severity Reaction Status Date / Time No Known Allergies Allergy Verified 07/22/17 14:24 Date of admission: 07/22/17 14:11 Primary care physician: PCP NONE Discharging clinician: Rosalind Vieira Anticipated date of discharge: 07/23/17 - Patient Status Disposition: Transfer Psychiatric Hosp Condition: Good Functional capacity at discharge: independent ambulation Overall status at discharge: patient is back to baseline - Discharge Instructions Follow Up With: NONE,PCP [Primary Care Provider] - Additional Instructions: Pt is being discharged to . - Diet and Activity Activity: increase activity as tolerated Diet: advance to your usual diet Hospital course: Mr. Elena is a 22 year old male with history of bipolar disorder, alcohol abuse, suicide attempts who presents to the ER for management of his acute manic episode secondary to his bipolar disorder. Patient states he has been hearing voices for the last few weeks and has been using alcohol to calm himself down. He says he has not seen a psychiatrist in over three years and needs to see one. He states that he is not consistent with taking medications. He reports of having past suicide attempt and current has thoughts of hurting himself with no clear plan to the ER staff, however, to me he states that he was never suicidal and that someone inserted it into his history. He states he couldn't handle the voices anymore which prompted his visit to the ER. He currently denies hearing voices to me. Upon arrival to the ER, he was intoxicated due to which he could not be admitted to psych inpatient. He was admitted for medical management until he could be admitted to for mental health admission. Alcohol level has returned to WNL and he is ready for transfer. He denies abd pain, n/v/d, headache, dizziness, lightheadedness, vision changes , chest pain, or SOB. His vital signs have been stable and his labs are WNL. Pt is ready for discharge and transfer to . - Time Spent with Patient Total time spent providing and/or coordinating discharge services: Less than 30 minutes - Constitutional Vitals: Temp Pulse Resp BP Pulse Ox 97.9 F 78 16 136/89 97 07/23/17 10:54 07/23/17 10:54 07/23/17 10:54 07/23/17 10:54 07/23/17 10:54 General appearance: Present: cooperative, A&O X 3, pleasant, no acute distress, answers questions appropriately - Head Head exam: Present: atraumatic, normal inspection, normocephalic - Eye Eye exam: Present: EOMI, normal appearance, conjuntiva pink, sclera anicteric - Neck Neck exam general surgery: Present: supple, trachea midline. Absent: lymphadenopathy, tenderness - Respiratory Respiratory exam: Present: CTAB. Absent: accessory muscle use, rales, rhonchi, wheezes - Cardiovascular Cardiovascular exam: Present: RRR, +S1, +S2. Absent: diastolic murmur, gallop, rubs, systolic murmur - GI/Abdominal GI/Abdominal exam: Present: normal bowel sounds, soft, no peritoneal signs. Absent: distended, firm, hepatomegaly, tenderness - Extremities Exam Extremities exam: Present: normal capillary refill, normal inspection, warm, radial pulses palpable and symmetrical. Absent: calf tenderness, cyanotic, pedal edema, tenderness - Neurological Exam Neurological exam: Present: alert, oriented X3, no focal deficits. Absent: facial droop, speech deficit - Skin Skin exam: Present: dry, intact, normal color, warm. Absent: rash
--- NOTE | 2017-07-23 19:45 | Event Note ---
Date of Encounter: 07/23/17 Time of Encounter: 19:39 I interviewed the patient at the bedside. He is calm and cooperative. He denies suicidal ideation or thoughts at present. He has a history of bipolar disorder and suicidal attempts in the past. He reports a recent history of heightened mood, energy level, diminished need for sleep. He was evaluated by psychiatry and deemed stable for voluntary inpatient psychiatric admission and management bipolar disorder with manic phase. At this point the patient is appropriate, demonstrating sound judgment, denies suicidal ideation, denies homicidal ideation. I consider him not to be a threat to self or others and appears to be reasonable and cooperative and quite able to take care of himself in the outpatient setting. He agreed to remain in the hospital on the medical floor awaiting psychiatry reevaluation. He is not at elopement risk. We will continue medical care.
[2017-07-24] MEDS: *HR* Heparin 5,000 UNIT/ML VIAL SQ SCH (05:54)
[2017-07-24 07:30] VITALS: BP 135/87
[2017-07-24] MEDS: Vitamin B Complex/Vit C/Vit E 1 EACH TABLET PO SCH (09:02)
[2017-07-24] MEDS: Thiamine (B-1) 100 MG TABLET PO SCH (09:02)
[2017-07-24] MEDS: Folic Acid 1 MG TABLET PO SCH (09:02)
--- NOTE | 2017-07-24 10:31 | Internal Med Progress Note ---
Date of Encounter: 07/24/17 Time of Encounter: 10:05 - Assessment and plan (1) Alcohol intoxication Current Visit: Yes Status: Acute Assessment and plan: Pt has not had a drink since prior to arrival. ETOH level is back to WNL. Pt expresses an interest in quitting and has not required [facility] protocol. Qualifiers: Complication of substance-induced condition: with unspecified complication Qualified Code(s): F10.929 - Alcohol use, unspecified with intoxication, unspecified (2) Suicidal ideation Current Visit: Yes Status: Acute Assessment and plan: Pt denies. (3) Bipolar disorder Current Visit: Yes Status: Chronic Assessment and plan: Pt has not been medicated and has not seen psychiatry in several years. He is going to for evaluation and treatment. Qualifiers: Active/Remission status: currently active Current bipolar episode type: mixed Current episode severity: unspecified Qualified Code(s): F31.60 - Bipolar disorder, current episode mixed, unspecified (4) DVT prophylaxis Current Visit: Yes Status: Acute Assessment and plan: Pt is ambulatory, Heparin SQ - Subjective Interval history: Pt was seen and assessed at 1005 am. He is alert and awake and appropriate. He still denies SI/HI and is aware that he has been told by psychiatry that he is going to be admitted to for evaluation and treatment. He denies pain, headache, n/v/d, abdominal pain, dizziness, lightheadedness. He denies auditory or visual hallucinations. Pt is concerned that he is going to lose his job. We discussed that I will do what I can to help him and will be given work excuses to cover the time he has been on this unit. - Constitutional Vitals: Temp Pulse Resp BP Pulse Ox 98.2 F 74 16 135/87 99 07/24/17 07:28 07/24/17 07:28 07/24/17 07:28 07/24/17 07:28 07/24/17 07:28 General appearance: Present: cooperative, A&O X 3, pleasant, no acute distress, answers questions appropriately - Head Head exam: Present: atraumatic, normal inspection, normocephalic - Eye Eye exam: Present: conjuntiva pink, sclera anicteric - Neck Neck exam general surgery: Present: supple, trachea midline. Absent: lymphadenopathy, tenderness - Respiratory Respiratory exam: Present: CTAB. Absent: accessory muscle use, rales, rhonchi, wheezes - Cardiovascular Cardiovascular exam: Present: RRR, +S1, +S2. Absent: diastolic murmur, gallop, rubs, systolic murmur - GI/Abdominal GI/Abdominal exam: Present: normal bowel sounds, soft, no peritoneal signs. Absent: distended, hepatomegaly, tenderness - Extremities Exam Extremities exam: Present: normal capillary refill, normal inspection, warm, radial pulses palpable and symmetrical. Absent: calf tenderness, cyanotic, pedal edema - Neurological Exam Neurological exam: Present: alert, oriented X3, no focal deficits. Absent: facial droop, speech deficit - Psychiatric Psychiatric exam: Present: normal affect, normal mood. Absent: agitated, anxious, flat affect, homicidal ideation, suicidal ideation - Skin Skin exam: Present: dry, intact, normal color, warm. Absent: rash Internal Medicine: Result - Labs CBC & Chem 7: 07/23/17 05:17 07/23/17 05:17 Consult Discharge Plan - Plan Additional Instructions: Pt is being discharged to . Referrals: NONE,PCP [Primary Care Provider] - (Please call the physician referral line to set up a follow up in 7-10 days. [phone])
--- NOTE | 2017-07-24 10:52 | Psychiatry Progress Note ---
Date of Encounter: 07/24/17 Time of Encounter: 09:45 Subjective Interval history: Patient was seen for follow-up CONSULTATION. RECORDS INDICATE THE PATIENT IS MEDICALLY STABILIZED AND HAS NO WITHDRAWAL SYMPTOMS. THE MEDICAL PROVIDER WAS ASKING TO REEVALUATE THE PATIENT FOR ADMISSION TO PSYCHIATRY WAS HER TREATMENT ON BIPOLAR DISORDER SUICIDAL IDEATION. ON INTERVIEW PATIENT IS ALERT CHOREIC PLEASANT DENIED ANY WITHDRAWAL SYMPTOMS AND AGREEABLE TO TREATMENT PLAN TO START ON MEDICATION FOR BIPOLAR DISORDER AND TO BE SCHEDULED FOLLOW-UP APPOINTMENTS AN OUTPATIENT. Review of Systems Psychiatric: Reports: abnormal sleep pattern, suicidal ideation Objective: Exam Patient orientation: Yes Person, Yes Time, Yes Place Level of alertness: Alert Patient appearance: Appropriate, Well Groomed Behavior: calm, cooperative Psychomotor activity: Normal Eye contact: Maintains Eye Contact Mood description: Euthymic/stable Affect description: congruent with mood, full range Speech pattern: Normal rate, Normal rhythm, Normal tone Speech volume: Normal Thought process: Linear, Goal Oriented Thought content: Yes Suicidal ideation, No Homicidal ideation, No Overt delusions Perceptual disturbances: No Auditory hallucinations, No Visual hallucinations Judgment: Fair Insight: Partial Results - Vital Signs Vital Signs: Temp Pulse Resp BP Pulse Ox 98.2 F 74 16 135/87 99 07/24/17 07:28 07/24/17 07:28 07/24/17 07:28 07/24/17 07:28 07/24/17 07:28 Assessment and Plan (1) Bipolar disorder Current visit: Yes Status: Chronic Plan: Continue hospitalization, Close observation, Suicide Precautions per unit protocol, Encourage participation in unit milieu, Group Therapy, Monitor sleep, Monitor appetite Additional Plan: Patient will be transferred to a psychiatric unit for further evaluation and treatment bipolar disorder. Treatment plan was shared was medical team and pink slip was included in the chart. Qualifiers: Active/Remission status: currently active Current bipolar episode type: mixed Current episode severity: unspecified Qualified Code(s): F31.60 - Bipolar disorder, current episode mixed, unspecified (2) Alcohol intoxication Current visit: Yes Status: Acute Plan: Continue hospitalization, Close observation, Suicide Precautions per unit protocol, Encourage participation in unit milieu, Group Therapy, Monitor sleep, Monitor appetite Qualifiers: Complication of substance-induced condition: with unspecified complication Qualified Code(s): F10.929 - Alcohol use, unspecified with intoxication, unspecified Consult Discharge Plan - Plan Additional Instructions: Pt is being discharged to 1A. Referrals: NONE,PCP [Primary Care Provider] - (Please call the physician referral line to set up a follow up in 7-10 days. [phone])
== END 2017-07-24 10:59 | DRG 897 ==
LOC: EMEROO 22:27 → 3BNU 22:27 → SUATTDRO 07-22 03:15 → 3BNU 07-22 03:37 → UNDODISIN 07-23 15:29
PROVIDERS: ADMIT Internal Medicine; ATTEND Internal Medicine

== ENCOUNTER 2017-07-24 11:03 | Observation (INO) ==
[2017-07-24] MEDS ORDERED: Haloperidol Lactate 5 MG/ML VIAL IM PRN (11:56)
[2017-07-24] MEDS ORDERED: Acetaminophen 325 MG TABLET PO PRN (11:56)
[2017-07-24] MEDS ORDERED: traZODone 50 MG TABLET PO PRN (11:56)
[2017-07-24] MEDS ORDERED: hydrOXYzine pamoate 25 MG CAPSULE PO PRN (11:56)
[2017-07-24] MEDS ORDERED: MOM Conc 10 ML UD.LIQ PO PRN (11:56)
[2017-07-24] MEDS ORDERED: *HR* LORazepam 1 MG TABLET PO PRN ×2 (11:56→16:26)
[2017-07-24] MEDS ORDERED: *HR* LORazepam 2 MG/ML VIAL IM PRN (11:56)
[2017-07-24] MEDS ORDERED: Mag Hydrox/Al Hydrox/Simeth 30 ML UDC PO PRN (11:56)
--- NOTE | 2017-07-24 15:43 | Psychiatry History & Physical ---
Date of Encounter: 07/25/17 Time of Encounter: 13:30 History of Present Illness Patient Stated Chief Complaint: Suicidal, bipolar Medicare Admission Attestation: For traditional Medicare patients the provided hospital inpatient services are reasonable and necessary and in the case of services not specified as inpatient -only under 42 CFR 419.22 (n), that they are appropriately provided as inpatient services in accordance 42 CFR 412.3. For Critical Access Hospital the patient may reasonably be expected to be discharged or transferred to a hospital within 96 hours after admission to the Critical Access Hospital. Admitted From: Hospital to Hospital Transfer (3B) History of Present Illness: Mr. Elena is a 22 year old male admitted from the medical floor 3B for treatments of suicidal ideation and bipolar disorder. Patient was stabilized in the medical floor from alcohol intoxication was a level above 300, also he expressed suicidal ideation. Patient stated that he had a history of bipolar disorder and has been treated in the past as an outpatient, he was given medication including Abilify and lithium and he did not tolerated this medication and has been without treatment for the last 3 years. He reported having difficulty falling asleep, mood swings, has been drinking excessively to calm himself down, he was irritable and unable to relax. His girlfriend encouraged him to come the hospital for help. Past Med Surg Social Fam HX - Past Medical History Medical history: no medical history - Past Psychiatric History Psychiatric history: Reports: bipolar, depression. Denies: previous psychiatric hospitalization - Past Surgical History Surgical History: no surgical history - Social History Smoking Status: Current every day smoker Smokeless Tobacco Status: No Alcohol use: heavy, recent Drug use: marijuana - Family History Mother Living Status: Still Living Hx Family Cardiac Disorders: No Hx Family Respiratory Disorders: Yes (Smoker) Hx Family Cancer: No Hx Family GI Disorders: Yes (Positive colonoscopy) Hx Family Endocrine Disorder: Yes (gestational diabetes) Hx Family Neuromuscular Disorders: No Hx Family Neurologic Disorders: No Hx Family HEENT Disorders: No Hx Family Autoimmune Disorders: No Medications & Allergies Folic Acid 1 mg PO DAILY tablet 07/23/17 [Rx] Thiamine (B-1) [Vitamin B-1] 100 mg PO DAILY tablet 07/23/17 [Rx] Vitamin B Complex/Vit C/Vit E [Stresstab] 1 each PO DAILY tablet 07/23/17 [Rx] 3 Allergy/AdvReac Type Severity Reaction Status Date / Time No Known Allergies Allergy Verified 07/22/17 14:24 Review of Systems Psychiatric: Reports: depression, anxiety, suicidal ideation, mood swings Mental Status Exam Patient orientation: Yes Person, Yes Time, Yes Place Level of alertness: Alert Patient appearance: Appropriate, Unkempt Behavior: calm, cooperative, suspicious Psychomotor activity: Normal Eye contact: Maintains Eye Contact Mood description: Euthymic/stable, Anxious Affect description: congruent with mood, labile Speech pattern: Normal rate, Normal rhythm, Normal tone Speech volume: Normal Thought process: Linear, Goal Oriented Thought content: Yes Suicidal ideation, No Homicidal ideation, No Overt delusions Perceptual disturbances: No Auditory hallucinations, No Visual hallucinations Attention span: Capable of Focused Attention Memory description: Grossly Intact Patient reliability: Reliable Historian Intelligence estimate: Average Judgment: Limited Insight: Partial Assessment and Plan (1) Bipolar disorder Current visit: No Status: Chronic Plan: Admit inpatient for safety and stabilization, Close observation, Suicide Precautions per unit protocol, Encourage participation in unit milieu, Group Therapy, Monitor sleep, Monitor appetite Additional Plan: Will start patient on Depakote 500 mg at bedtime Risks, benefits, side effects, alternatives discussed w/pt: Yes Patient agreeable to treatment: Yes Qualifiers: Active/Remission status: currently active Current bipolar episode type: manic Current episode severity: severe Psychotic features: without psychotic features Qualified Code(s): F31.13 - Bipolar disorder, current episode manic without psychotic features, severe (2) Suicidal ideation Current visit: No Status: Acute Plan: Admit inpatient for safety and stabilization, Close observation, Suicide Precautions per unit protocol, Encourage participation in unit milieu, Group Therapy, Monitor sleep, Monitor appetite Risks, benefits, side effects, alternatives discussed w/pt: Yes Patient agreeable to treatment: Yes
[2017-07-24] MEDS ORDERED: Divalproex (24 HR) 500 MG TABLET PO ONE (16:18)
[2017-07-24] MEDS ORDERED: Divalproex (24 HR) 500 MG TABLET PO SCH (21:00)
[2017-07-25 09:27] VITALS: BP 138/93
--- NOTE | 2017-07-25 11:47 | Discharge Summary ---
Date of Encounter: 07/25/17 Time of Encounter: 11:00 Diagnosis - Discharge Diagnosis (1) Bipolar disorder Status: Chronic Qualifiers: Active/Remission status: currently active Current bipolar episode type: manic Current episode severity: severe Psychotic features: without psychotic features Qualified Code(s): F31.13 - Bipolar disorder, current episode manic without psychotic features, severe (2) Suicidal ideation Status: Acute Medications - Discharge Medications Prescriptions: Divalproex (24 HR) [Depakote ER (24 HR)] 500 mg PO HS #30 tab.er.24h Folic Acid 1 mg PO DAILY tablet 07/23/17 [Rx] Thiamine (B-1) [Vitamin B-1] 100 mg PO DAILY tablet 07/23/17 [Rx] Vitamin B Complex/Vit C/Vit E [Stresstab] 1 each PO DAILY tablet 07/23/17 [Rx] Divalproex (24 HR) [Depakote ER (24 HR)] 500 mg PO HS #30 tab.er.24h 07/25/17 [ Rx] 3 Allergy/AdvReac Type Severity Reaction Status Date / Time No Known Allergies Allergy Verified 07/22/17 14:24 Provider Date of admission: 07/24/17 11:03 Primary care physician: PCP NONE Discharging clinician: Surinder Romero Assessment and Plan - Patient/Caregiver Discharge Instructions Activity: resume usual activities as tolerated Diet: regular diet Additional Instructions: . - Follow up Plan Follow up with: [facility] [Outside] - 08/13/17 2:00 pm (The above appointment is with Arabella Palacio, for mental health counseling services. Please arrive 10 minutes early to complete the check-in process. Please bring your insurance card (or [facility]) and photo ID. If you are unable to keep this appointment, 24 hour business notice of cancellation is expected. If you miss your new patient appointment without providing appropriate notice, you cannot be re-scheduled. This is the first available appointment. You may contact the office regularly to check for cancellations that may allow you to be seen sooner. The [facility] is the [facility]st building behind [facility] in [place], [place]. Please do not use GPS or mapping apps to locate the office, as they will take you to the wrong location. ) [facility] [employer] [facility] [Outside] - 08/13/17 8:00 am (The above appointment is with Dr. Bowman for outpatient psychiatric assessment and medication management services. Please arrive 15 minutes early to complete paperwork. Please bring your insurance card, photo ID and medications in their original bottles. If you do not have insurance, bring proof of income to apply for the sliding fee scale. If you are unable to keep this appointment, 24 hour business notice of cancellation is expected. This is the first available appointment. You may contact the office regularly to check for cancellations that may allow you to be seen sooner. ) [facility] 2:00 pm (The above appointment is with Sami for substance abuse counseling services.) Functional capacity at discharge: independent ambulation Overall status at discharge: Stable Disposition: Home, Self-Care Hospital Course Hospital course: Mr. Elena is a 22 year old male admitted from the [facility] for evaluation and treatment of bipolar disorder. For details of admission please see H&P On the unit the patient was started on Depakote 500 mg he tolerated the medication and reported improved sleep and "anxiety. Patient was educated about the medication and benefits including helping him with craving for alcohol. Patient was compliant participated in activities on the unit and was medically stable. He denies suicidal ideation. workers compensation examiner completed his discharge plans for outpatient treatment. Patient was discharged in stable condition. - Time Spent with Patient Total time spent providing and/or coordinating discharge services: Greater than 30 minutes Quality - Multiple Antipsychotics Patient discharged on 2 or more antipsychotic medications: No Procedures - Procedures Procedures: Medication Management, Crisis Stabilization, Supportive Therapy, Group Therapy, Psychoeducational Therapy Mental Status Exam - Mental Status Exam Patient orientation: Yes Person, Yes Time, Yes Place Level of alertness: Alert Patient appearance: Appropriate, Well Groomed Behavior: calm, cooperative Psychomotor activity: Normal Eye contact: Maintains Eye Contact Mood description: Euthymic/stable Affect description: congruent with mood, full range Speech pattern: Normal rate, Normal rhythm, Normal tone Speech Volume: Normal Thought process: Linear, Goal Oriented Thought Content: No Suicidal ideation, No Homicidal ideation, No Overt delusions Perceptual Disturbances: No Auditory hallucinations, No Visual hallucinations Judgment: Limited Insight: Partial
== END 2017-07-25 18:35 | disposition home or self-care (01) ==
LOC: 1ANU 11:03 → INTOOBSV 11:03
PROVIDERS: ADMIT Psychiatry & Neurology Psychiatry; ATTEND Psychiatry & Neurology Psychiatry